=== PATIENT | male | born 1945 | race Caucasian/White ===

== ENCOUNTER → 2019-05-09 | Emergency (ER) | payer MEDICARE, MEDICAID ==
[~2019-05-09] VITALS: Ht 167.6 cm; Wt 59.1 kg
[~2019-05-09] MED LIST: ADV50250 IH; ALBU8HFA; ASPI-1265 PO; ATOR10TA PO; CLOP75TA35 PO; LIDOcaine 1% (10mg/ml)w/preservative injection 20ml MDV ONE; Lisinopril PO; NORepinephrine 1 mg/ml inj IV ONE; amiodarone 50MG/ML inj IV ONE; calcium chloride 100 MG/1 ML inj IV ONE; epiNEPHrine 0.1mg/ml 10ml syringe ONE; etomidate 2mg/ml inj. IV ONE; etomidate 2mg/ml inj. ONE; fentaNYL/PF 50MCG/1 ML 2ML syringe ONE; heparin 1,000unit/ml 10ml vial 10 ML ONE; iohexol 350 MG/1 ML 200ml bottle ONE; iohexol 350 MG/ML 50ML vial IV ONE; magnesium sulf 1 GM/2 ML ONE; midazolam 2 mg/2 ml injection ONE; nitroGLYCERIN-Tridil 50MG/D5W 250 ML IV ONE; sod chloride 0.9% 10ml flush syringe IV ONE; sodium bicarbonate (8.4%) 1 mEq/ml syringe ONE; succinylcholine 20mg/ml inj IV ONE
--- NOTE | 2019-05-09 20:00 | NUR ---
DR CARDENAS AT BEDSIDE, PREPARING FOR CENTRAL LINE PLACEMENT.
[2019-05-09 20:15] VITALS: BP 91/61
--- NOTE | 2019-05-09 20:19 | NUR ---
DR CARTY AT BEDSIDE, NO BP ON PT. CHEST COMPRESSIONS STARTED ON PT.
--- NOTE | 2019-05-09 22:05 | NUR ---
[employer]OR NETWORK NOTIFIED PRODUCTION EDITOR NOTIFIED-RELEASE TO MORTUARY OF CHOICE BY DC SPEAR
--- NOTE | 2019-05-09 23:39 | NUR ---
CONTACTED [facility] AGAIN REGARDING ETA FOR [employer] REFINING [employer]ER
== END | disposition expired ==
LOC: ER 19:44
DX: I46.9 Cardiac arrest, cause unspecified (principal); I25.10 Atherosclerotic heart disease of native coronary artery without angina pectoris; E78.00 Pure hypercholesterolemia, unspecified; I10 Essential (primary) hypertension; J44.9 Chronic obstructive pulmonary disease, unspecified; K21.9 Gastro-esophageal reflux disease without esophagitis; F17.200 Nicotine dependence, unspecified, uncomplicated; F12.90 Cannabis use, unspecified, uncomplicated; Z95.1 Presence of aortocoronary bypass graft; Z88.5 Allergy status to narcotic agent; Z79.82 Long term (current) use of aspirin; Z79.899 Other long term (current) drug therapy
CPT/HCPCS: 31500; 36556; 71045; 92950; 93005; 94640; 99285; C1769; J0171; J0282; J0330; J1644; J2001; J2250; J3010; J3475; Q9967; 94002; 94760; A6258; J3490